=== PATIENT | female | born 1965 | race Caucasian/White ===

== ENCOUNTER 2018-08-19 18:06 | Emergency (ER) | payer MEDICAID ==
[~2018-08-19] VITALS: Ht 157.5 cm; Wt 62.6 kg
[2018-08-19 18:06] VITALS: BP_SYST 156
--- NOTE | 2018-08-19 18:10 | NUR ---
Patient triaged and placed in waiting room. VSS and patient appears in no acute distress at this time. Accompanied by SELF, awaiting available bed, and MD notified of need for MSE.
--- NOTE | 2018-08-19 18:21 | NUR ---
BROUGHT BACK TO BED #8 AND TRIAGED. REPORT GIVEN TO CARRIE
--- NOTE | 2018-08-19 18:30 | NUR ---
ER Dr. Monroy at bedside examining patient.
--- NOTE | 2018-08-19 18:50 | NUR ---
Patient presented to ER with vertigo, abdominal pain, nausea, and headache x1week. Patient AA&Ox4, lao speaking, afebrile, respirations equal bilat, pain 10/10, denies head trauma. Patient states vertigo, nausea, abdominal pain and headache started a week ago, today pain increased to 10/10 prompting ER visit today. Patient states she has diabetes, history of vertigo 8 months ago, and kidney stones.
[2018-08-19] MEDS ORDERED: NACL 0.9% 1,000 ML IV ONE (18:52)
[2018-08-19] MEDS ORDERED: METOCLOPRAMIDE HCL 10 MG/2 ML VIAL IVP ONE (19:00)
[2018-08-19] MEDS ORDERED: MECLIZINE HCL 25 MG TABLET (ANITVERT) PO ONE (19:00)
[2018-08-19 19:09] LABS: BASOPHILS % (AUTO) 0.5 % (0.0-2.0); EOSINOPHILS # (AUTO) 0.1 K/uL (0.0-0.4); EOSINOPHILS % (AUTO) 1.3 % (0.0-4.0); HEMOGLOBIN 14.4 g/dL (12.0-16.0); LYMPHOCYTES # (AUTO) 2.9 K/uL (1.0-5.5); LYMPHOCYTES % (AUTO) 33.9 % (20.5-51.5); MEAN CORPUSCULAR HEMOGLOBIN 31 pg (27-31); MEAN CORPUSCULAR HGB CONC 34 % (32-36); MEAN CORPUSCULAR VOLUME 91 fL (79.0-98.0); MONOCYTES # (AUTO) 0.6 K/uL (0.0-1.0); MONOCYTES % (AUTO) 6.6 % (1.7-9.3); NEUTROPHILS # (AUTO) 4.9 K/uL (1.8-7.7); NEUTROPHILS % (AUTO) 57.7 % (40.0-70.0); PLATELET COUNT (AUTO) 251 K/uL (130-430); RED BLOOD CELL COUNT(AUTO) 4.61 MIL/uL (4.2-6.2); RED CELL DISTRIBUTION WIDTH 13.4 % (9.0-15.0); WHITE BLOOD COUNT (AUTO) 8.5 K/uL (4.8-10.8)
[2018-08-19 19:19] LABS: CALCIUM 9.2 mg/dL (8.4-11.0); CREATININE 0.87 mg/dL (0.55-1.30); POTASSIUM 3.8 mmol/L (3.5-5.1)
--- NOTE | 2018-08-19 19:20 | NUR ---
Daniel bills in [facility] - 08/19/18 at 1920 by SDEDTD Report given to Juvencio REYES
--- NOTE | 2018-08-19 19:20 | NUR ---
Report given to Maura REYES
[2018-08-19 19:24] LABS: ALBUMIN 3.7 g/dL (3.4-4.8); TOTAL BILIRUBIN 0.5 mg/dL (0.0-1.0)
[2018-08-19] MEDS ORDERED: KETOROLAC TROMETHAMINE 30 MG VIAL IVP ONE (19:45)
--- NOTE | 2018-08-19 20:45 | NUR ---
Dr. Moon at bedside explaining results to pt
[2018-08-19] MEDS ORDERED: MORPHINE 4 MG/ML INJ. SYRINGE IM ONE (21:00)
[2018-08-19 21:25] VITALS: BP_SYST 156
--- NOTE | 2018-08-19 21:25 | NUR ---
Patient given written and verbal discharge instructions and verbalizes understanding. ER MD Dr. Gong discussed with patient the results and treatment provided. Patient in stable condition. ID arm band removed. Rx of Reglan and antivert given. Patient educated on pain management and to follow up with PMD. Pain Scale 0/10. Opportunity for questions provided and answered. Medication side effect fact sheet provided.
== END 2018-08-19 21:25 | disposition home or self-care (01) ==
LOC: SED 18:06
DX: R42 Dizziness and giddiness (principal); R11.2 Nausea with vomiting, unspecified; F41.9 Anxiety disorder, unspecified; E11.9 Type 2 diabetes mellitus without complications; R03.0 Elevated blood-pressure reading, without diagnosis of hypertension
CPT/HCPCS: 36415; 80053; 85025; 93005; 96361; 96372; 96374; 96375; 99284; J1885; J2270; J2765; J7030; J8597

== ENCOUNTER 2018-09-11 15:52 | Emergency (ER) | payer MEDICAID ==
[~2018-09-11] VITALS: Ht 157.5 cm; Wt 74.8 kg
[2018-09-11 15:56] VITALS: BP_SYST 154
[2018-09-11] MEDS ORDERED: METOCLOPRAMIDE HCL 10 MG/2 ML VIAL IVP ONE ×2 (16:15→17:00)
[2018-09-11] MEDS ORDERED: MECLIZINE HCL 25 MG TABLET (ANITVERT) PO ONE (16:15)
[2018-09-11] MEDS ORDERED: DIPHENHYDRAMINE INJ 50 MG/ML VIAL IVP ONE (17:00)
[2018-09-11 17:01] LABS: BASOPHILS % (AUTO) 0.5 % (0.0-2.0); EOSINOPHILS # (AUTO) 0.1 K/uL (0.0-0.4); EOSINOPHILS % (AUTO) 1.1 % (0.0-4.0); HEMATOCRIT 41.8 % (36-48); HEMOGLOBIN 14.6 g/dL (12.0-16.0); LYMPHOCYTES # (AUTO) 2.5 K/uL (1.0-5.5); LYMPHOCYTES % (AUTO) 31.9 % (20.5-51.5); MEAN CORPUSCULAR HEMOGLOBIN 31 pg (27-31); MEAN CORPUSCULAR HGB CONC 35 % (32-36); MEAN CORPUSCULAR VOLUME 89 fL (79.0-98.0); MONOCYTES # (AUTO) 0.5 K/uL (0.0-1.0); NEUTROPHILS # (AUTO) 4.8 K/uL (1.8-7.7); NEUTROPHILS % (AUTO) 60.5 % (40.0-70.0); PLATELET COUNT (AUTO) 241 K/uL (130-430); WHITE BLOOD COUNT (AUTO) 7.9 K/uL (4.8-10.8)
[2018-09-11 17:09] LABS: CALCIUM 9.4 mg/dL (8.4-11.0); CREATININE 0.84 mg/dL (0.55-1.30); POTASSIUM 3.9 mmol/L (3.5-5.1)
[2018-09-11 17:12] LABS: PROTHROMBIN TIME 9.9 SECS (9.5-12.5)
[2018-09-11 17:13] LABS: ALBUMIN 3.9 g/dL (3.4-4.8); TOTAL BILIRUBIN 0.6 mg/dL (0.0-1.0)
[2018-09-11] MEDS ORDERED: MORPHINE 4 MG/ML INJ. SYRINGE IVP ONE (17:45)
[2018-09-11 18:36] VITALS: BP_SYST 133
== END 2018-09-11 18:36 | disposition home or self-care (01) ==
LOC: SED 15:52
DX: R51 Headache (principal); R42 Dizziness and giddiness; F41.9 Anxiety disorder, unspecified; E11.9 Type 2 diabetes mellitus without complications
CPT/HCPCS: 36415; 70450; 71045; 80053; 81025; 84484; 85025; 85610; 85730; 93005; 96374; 96375; 99284; J1200; J2270; J2765; J8597

== ENCOUNTER 2018-10-12 17:49 | Emergency (ER) | payer MEDICAID ==
[~2018-10-12] VITALS: Ht 157.5 cm; Wt 76.2 kg
[2018-10-12 18:04] VITALS: BP_SYST 163
--- NOTE | 2018-10-12 18:06 | NUR ---
Patient to ER bed 02 to gown for evaluation. Side rails up.
--- NOTE | 2018-10-12 18:13 | NUR ---
PATIENT CAME IN COMPLAINING OF STABBING EPIGASTRIC PAIN 9/10 FOR 3 DAYS. PATIENT ALSO COMPLAINING OF ANXIETY FOR PAST 3 DAYS. PATIENT COMPLAINING OF NAUSEA BUT NO VOMITING. PATIENT STATES SHE TOOK IBUPROFEN BUT MADE WORST. PATIENT NOT COMPLAINING OF SOB. PATIENT ALERT AND ORIENTED X4.
--- NOTE | 2018-10-12 18:31 | NUR ---
ER at bedside examining patient.
[2018-10-12] MEDS ORDERED: NACL 0.9% 1,000 ML IV ONE (18:45)
[2018-10-12] MEDS ORDERED: MORPHINE 4 MG/ML INJ. SYRINGE IVP ONE (18:45)
--- NOTE | 2018-10-12 18:51 | NUR ---
ULTRA SOUND AT BEDSIDE.
[2018-10-12 18:56] LABS: BASOPHILS % (AUTO) 0.4 % (0.0-2.0); EOSINOPHILS # (AUTO) 0.1 K/uL (0.0-0.4); EOSINOPHILS % (AUTO) 1.2 % (0.0-4.0); HEMATOCRIT 39.6 % (36-48); HEMOGLOBIN 13.7 g/dL (12.0-16.0); LYMPHOCYTES # (AUTO) 3.1 K/uL (1.0-5.5); LYMPHOCYTES % (AUTO) 43.9 % (20.5-51.5); MEAN CORPUSCULAR HEMOGLOBIN 31 pg (27-31); MEAN CORPUSCULAR HGB CONC 35 % (32-36); MEAN CORPUSCULAR VOLUME 89 fL (79.0-98.0); MONOCYTES # (AUTO) 0.4 K/uL (0.0-1.0); MONOCYTES % (AUTO) 5.9 % (1.7-9.3); NEUTROPHILS # (AUTO) 3.4 K/uL (1.8-7.7); NEUTROPHILS % (AUTO) 48.6 % (40.0-70.0); PLATELET COUNT (AUTO) 231 K/uL (130-430); RED BLOOD CELL COUNT(AUTO) 4.47 MIL/uL (4.2-6.2); RED CELL DISTRIBUTION WIDTH 13.3 % (9.0-15.0)
[2018-10-12] MEDS ORDERED: ONDANSETRON HCL 4 MG/2 ML VIAL IVP ONE (19:00)
--- NOTE | 2018-10-12 19:07 | NUR ---
ENDORSED CARE TO AMY HICKEY.
[2018-10-12 19:16] LABS: CALCIUM 8.9 mg/dL (8.4-11.0); CREATININE 0.75 mg/dL (0.55-1.30); POTASSIUM 3.6 mmol/L (3.5-5.1)
[2018-10-12 19:17] LABS: BILIRUBIN,URINE NEGATIVE (NEGATIVE); BLOOD, URINE NEGATIVE (NEGATIVE); CLARITY/URINE CLEAR (CLEAR); COLOR,URINE YELLOW (YELLOW); GLUCOSE,URINE 3+ (NEGATIVE); KETONES,URINE NEGATIVE (NEGATIVE); LEUKOCYTE ESTERASE ,URINE NEGATIVE (NEGATIVE); NITRITE, URINE NEGATIVE (NEGATIVE); PH,URINE 6.5 (5.0-8.0); PROTEIN URINE NEGATIVE (NEGATIVE); UROBILINOGEN,URINE 0.2 (0.2-1.0)
[2018-10-12 19:20] LABS: ALBUMIN 3.3 g/dL (3.4-4.8); TOTAL BILIRUBIN 0.3 mg/dL (0.0-1.0)
[2018-10-12 19:42] LABS: BACTERIA,URINE FEW /HPF (None Seen); RBC,URINE NONE SEEN /HPF (0-3); WBC,URINE 0-3 /HPF (0-3)
[2018-10-12 19:43] LABS: MUCUS,URINE 1+ /LPF (None Seen)
[2018-10-12] MEDS ORDERED: ACETAMINOPHEN 500 MG TABLET PO ONE (20:30)
--- NOTE | 2018-10-12 20:36 | NUR ---
Pt C/O headache 11/03 after morphine administration. ER MD notified and orders recieved. Pt given 1000mg of Tylenol PO for discomfort
[2018-10-12 20:45] VITALS: BP_SYST 125
--- NOTE | 2018-10-12 20:45 | NUR ---
2044 - Patient given written and verbal discharge instructions and verbalizes understanding. ER MD discussed with patient the results and treatment provided. Patient in stable condition. ID arm band removed. IV catheter removed intact and dressing applied, no active bleeding. Rx of bentyl given. Patient educated on pain management and to follow up with PMD. Pain Scale 3. Opportunity for questions provided and answered. Medication side effect fact sheet provided.
== END 2018-10-12 20:45 | disposition home or self-care (01) ==
LOC: SED 17:49
DX: R10.13 Epigastric pain (principal); E11.65 Type 2 diabetes mellitus with hyperglycemia
CPT/HCPCS: 36415; 76700; 80053; 81000; 82962; 83690; 85025; 93005; 96361; 96374; 96375; 99284; J2270; J2405; J7030

== ENCOUNTER 2018-11-09 10:30 | Emergency (ER) | payer MEDICAID ==
[~2018-11-09] VITALS: Ht 157.5 cm; Wt 82.6 kg
[2018-11-09 10:44] VITALS: BP_SYST 137
--- NOTE | 2018-11-09 10:50 | NUR ---
Patient to ER bed 5 to gown for evaluation. Side rails up. Report given to Johnson REYES.
--- NOTE | 2018-11-09 11:02 | NUR ---
LESLEY Rosa at bedside examining patient.
--- NOTE | 2018-11-09 11:09 | NUR ---
Pt came into ED with left flank pain that she's had for two months. Patient states that the pain has gotten worse in the past 4 days. Patient states that her physician gave her naproxin, but she broke out in hives. Pt states she's taking ibuprofen for pain but it doesn't help the pain. Pt states her pain is 0/10. Pt states she has nausea, denies vomiting. Patient's last BM was yesterday morning and it was diarrhea. Pt denies SOB. Pt is A&Ox4. Will continue to monitor.
[2018-11-09 11:12] LABS: BILIRUBIN,URINE NEGATIVE (NEGATIVE); BLOOD, URINE 1+ (NEGATIVE); CLARITY/URINE CLEAR (CLEAR); COLOR,URINE YELLOW (YELLOW); GLUCOSE,URINE 2+ (NEGATIVE); KETONES,URINE NEGATIVE (NEGATIVE); LEUKOCYTE ESTERASE ,URINE NEGATIVE (NEGATIVE); NITRITE, URINE NEGATIVE (NEGATIVE); PROTEIN URINE NEGATIVE (NEGATIVE)
[2018-11-09] MEDS ORDERED: MORPHINE 4 MG/ML INJ. SYRINGE IVP ONE (11:15)
[2018-11-09] MEDS ORDERED: ONDANSETRON HCL 4 MG/2 ML VIAL IVP ONE (11:15)
[2018-11-09 11:26] LABS: BASOPHILS % (AUTO) 0.3 % (0.0-2.0); EOSINOPHILS # (AUTO) 0.1 K/uL (0.0-0.4); EOSINOPHILS % (AUTO) 1.7 % (0.0-4.0); HEMATOCRIT 40.1 % (36-48); HEMOGLOBIN 13.9 g/dL (12.0-16.0); LYMPHOCYTES # (AUTO) 1.6 K/uL (1.0-5.5); LYMPHOCYTES % (AUTO) 30.7 % (20.5-51.5); MEAN CORPUSCULAR HEMOGLOBIN 31 pg (27-31); MEAN CORPUSCULAR HGB CONC 35 % (32-36); MEAN CORPUSCULAR VOLUME 89 fL (79.0-98.0); MONOCYTES # (AUTO) 0.4 K/uL (0.0-1.0); MONOCYTES % (AUTO) 7.5 % (1.7-9.3); NEUTROPHILS # (AUTO) 3.2 K/uL (1.8-7.7); NEUTROPHILS % (AUTO) 59.8 % (40.0-70.0); PLATELET COUNT (AUTO) 226 K/uL (130-430); RED BLOOD CELL COUNT(AUTO) 4.48 MIL/uL (4.2-6.2); RED CELL DISTRIBUTION WIDTH 13.7 % (9.0-15.0); WHITE BLOOD COUNT (AUTO) 5.4 K/uL (4.8-10.8)
[2018-11-09 11:31] LABS: BACTERIA,URINE FEW /HPF (None Seen); RBC,URINE 0-3 /HPF (0-3)
[2018-11-09 11:32] LABS: MUCUS,URINE None Seen /LPF (None Seen)
[2018-11-09 11:41] LABS: CALCIUM 9.2 mg/dL (8.4-11.0); CREATININE 0.8 mg/dL (0.55-1.30); POTASSIUM 3.9 mmol/L (3.5-5.1)
[2018-11-09 11:45] LABS: ALBUMIN 3.6 g/dL (3.4-4.8); TOTAL BILIRUBIN 0.3 mg/dL (0.0-1.0)
[2018-11-09] MEDS ORDERED: SIMETHICONE 80 MG TAB.CHEW PO ONE (12:15)
[2018-11-09] MEDS ORDERED: CIPROFLOXACIN HCL 500 MG TABLET PO ONE (12:15)
[2018-11-09] MEDS ORDERED: metroNIDAZOLE 500 MG TABLET PO ONE (12:15)
--- NOTE | 2018-11-09 12:30 | NUR ---
Patient states that she is still in pain. MD notified; will carry out orders.
[2018-11-09] MEDS ORDERED: LACTULOSE 20 GM/30 ML UDC PO ONE (12:45)
[2018-11-09] MEDS ORDERED: KETOROLAC TROMETHAMINE 15 MG VIAL IVP ONE (12:45)
[2018-11-09 13:15] VITALS: BP_SYST 137
--- NOTE | 2018-11-09 13:15 | NUR ---
Patient given written and verbal discharge instructions and verbalizes understanding. ER MD discussed with patient the results and treatment provided. Patient in stable condition. ID arm band removed. IV catheter removed intact and dressing applied, no active bleeding. Rx of flagyl, simethicone, cipro given. Patient educated on pain management and to follow up with PMD. Pain Scale 1/10. Opportunity for questions provided and answered. Medication side effect fact sheet provided.
== END 2018-11-09 13:15 | disposition home or self-care (01) ==
LOC: SED 10:30
DX: K52.9 Noninfective gastroenteritis and colitis, unspecified (principal); K59.00 Constipation, unspecified; E11.9 Type 2 diabetes mellitus without complications; F41.9 Anxiety disorder, unspecified
CPT/HCPCS: 36415; 74176; 80053; 81000; 85025; 96374; 96375; 99284; J1885; J2270; J2405

== ENCOUNTER 2018-12-01 17:49 | Emergency (ER) | payer MEDICAID ==
[~2018-12-01] VITALS: Ht 157.5 cm; Wt 79.4 kg
[2018-12-01 17:49] VITALS: BP_SYST 145
[2018-12-01] MEDS ORDERED: METOCLOPRAMIDE HCL 10 MG/2 ML VIAL IVP ONE (18:45)
[2018-12-01] MEDS ORDERED: KETOROLAC TROMETHAMINE 30 MG VIAL IVP ONE (19:15)
[2018-12-01] MEDS ORDERED: MORPHINE 2 MG/ML INJ. SYRINGE IVP ONE (20:00)
[2018-12-01 20:07] VITALS: BP_SYST 134
== END 2018-12-01 20:07 | disposition home or self-care (01) ==
LOC: SED 17:49
DX: R51 Headache (principal); F41.9 Anxiety disorder, unspecified; E11.9 Type 2 diabetes mellitus without complications
CPT/HCPCS: 70450; 96374; 96375; 99284; J1885; J2270; J2765

== ENCOUNTER 2018-12-21 17:45 | Emergency (ER) | payer MEDICAID ==
[~2018-12-21] VITALS: Ht 157.5 cm; Wt 84.4 kg
[2018-12-21 17:52] VITALS: BP_SYST 123
--- NOTE | 2018-12-21 17:57 | NUR ---
Patient triaged and placed in waiting room. VSS and patient appears in no acute distress at this time. Accompanied by SELF, awaiting available bed, and MD notified of need for MSE.
--- NOTE | 2018-12-21 18:24 | NUR ---
Patient to ER bed 07 to gown for evaluation. Side rails up. Report RECEIVED FROM AMY HATFIELD
--- NOTE | 2018-12-21 18:38 | NUR ---
LESLEY Rosa examining patient.
[2018-12-21 18:44] LABS: BILIRUBIN,URINE NEGATIVE (NEGATIVE); BLOOD, URINE 2+ (NEGATIVE); CLARITY/URINE CLEAR (CLEAR); COLOR,URINE YELLOW (YELLOW); GLUCOSE,URINE NEGATIVE (NEGATIVE); KETONES,URINE NEGATIVE (NEGATIVE); LEUKOCYTE ESTERASE ,URINE TRACE (NEGATIVE); NITRITE, URINE NEGATIVE (NEGATIVE); PROTEIN URINE NEGATIVE (NEGATIVE)
[2018-12-21] MEDS ORDERED: DIPHENHYDRAMINE INJ 50 MG/ML VIAL IVP ONE (18:45)
[2018-12-21] MEDS ORDERED: NACL 0.9% 1,000 ML IV ONE (18:45)
[2018-12-21] MEDS ORDERED: MORPHINE 4 MG/ML INJ. SYRINGE IVP ONE (18:45)
[2018-12-21 18:57] LABS: BACTERIA,URINE RARE /HPF (None Seen)
[2018-12-21] MEDS ORDERED: KETOROLAC TROMETHAMINE 30 MG VIAL IVP ONE (19:00)
--- NOTE | 2018-12-21 19:15 | NUR ---
ER at bedside examining patient.
[2018-12-21 19:19] LABS: BASOPHILS % (AUTO) 0.5 % (0.0-2.0); EOSINOPHILS # (AUTO) 0.1 K/uL (0.0-0.4); HEMATOCRIT 41.1 % (36-48); LYMPHOCYTES # (AUTO) 2.4 K/uL (1.0-5.5); MEAN CORPUSCULAR HEMOGLOBIN 31 pg (27-31); MEAN CORPUSCULAR HGB CONC 34 % (32-36); MEAN CORPUSCULAR VOLUME 91 fL (79.0-98.0); MONOCYTES # (AUTO) 0.6 K/uL (0.0-1.0); MONOCYTES % (AUTO) 6.8 % (1.7-9.3); NEUTROPHILS % (AUTO) 65.7 % (40.0-70.0); PLATELET COUNT (AUTO) 218 K/uL (130-430); RED BLOOD CELL COUNT(AUTO) 4.55 MIL/uL (4.2-6.2); RED CELL DISTRIBUTION WIDTH 13.7 % (9.0-15.0); WHITE BLOOD COUNT (AUTO) 9.2 K/uL (4.8-10.8)
[2018-12-21 19:38] LABS: CALCIUM 9.2 mg/dL (8.4-11.0); CREATININE 0.87 mg/dL (0.55-1.30); POTASSIUM 3.7 mmol/L (3.5-5.1)
[2018-12-21 19:43] LABS: ALBUMIN 3.9 g/dL (3.4-4.8); TOTAL BILIRUBIN 0.5 mg/dL (0.0-1.0)
[2018-12-21] MEDS ORDERED: cefTRIAXone 1 GM IVPB PREMIX 50 ML IV ONE (19:45)
[2018-12-21] MEDS ORDERED: ACETAMINOPHEN 500 MG TABLET PO ONE (21:30)
--- NOTE | 2018-12-21 21:56 | NUR ---
Patient off unit to ultrasound for US of abdomen with Maggi Leather Patcher.
--- NOTE | 2018-12-21 22:05 | NUR ---
Returned from radiology, back to [facility].
[2018-12-21 22:53] VITALS: BP_SYST 123
--- NOTE | 2018-12-21 22:53 | NUR ---
Patient given written and verbal discharge instructions and verbalizes understanding. ER MD discussed with patient the results and treatment provided. Patient in stable condition. ID arm band removed. IV catheter removed intact and dressing applied, no active bleeding. Rx of pyridium, motrin, bentyl given. Patient educated on pain management and to follow up with PMD. Pain Scale 0/10. Opportunity for questions provided and answered. Medication side effect fact sheet provided.
== END 2018-12-21 22:53 | disposition home or self-care (01) ==
LOC: SED 17:45
DX: N20.0 Calculus of kidney (principal); R03.0 Elevated blood-pressure reading, without diagnosis of hypertension; N28.89 Other specified disorders of kidney and ureter; E11.9 Type 2 diabetes mellitus without complications; Z88.8 Allergy status to other drugs, medicaments and biological substances
CPT/HCPCS: 36415; 74176; 76700; 80053; 81000; 81025; 83690; 85025; 87040; 87086; 96365; 96375; 99284; J0696; J1200; J1885; J2270; J7030

== ENCOUNTER 2019-02-17 12:58 | Emergency (ER) | payer MEDICAID ==
[~2019-02-17] VITALS: Ht 157.5 cm; Wt 78.9 kg
[2019-02-17 13:00] VITALS: BP_SYST 143
--- NOTE | 2019-02-17 13:00 | NUR ---
BROUGHT BACK TO BED #6 AND TRIAGED. REPORT GIVEN TO GIDEON
[2019-02-17] MEDS ORDERED: KETOROLAC TROMETHAMINE 60 MG/2 ML VIAL IM ONE (13:15)
[2019-02-17] MEDS ORDERED: PROCHLORPERAZINE EDISYLATE 10 MG/2 ML VIAL IM ONE (13:15)
--- NOTE | 2019-02-17 13:22 | NUR ---
ER Dr. Eason at bedside examining patient.
--- NOTE | 2019-02-17 13:27 | NUR ---
Pt. arrived from home. Pt. laying in bed, c/o headache and photosensitivity for 3 days. No other complaint at the moment.
--- NOTE | 2019-02-17 13:36 | NUR ---
medicated the pt w/ Toradol 60mg and Compazine IM per MD order.
[2019-02-17] MEDS ORDERED: DIPHENHYDRAMINE INJ 50 MG/ML VIAL IM ONE (15:00)
[2019-02-17] MEDS ORDERED: fentaNYL CITRATE/PF 100 MCG/2 ML AMP IM ONE (15:00)
--- NOTE | 2019-02-17 15:35 | NUR ---
Medicated the pt w/ Benadryl and Fentanyl per MD order
--- NOTE | 2019-02-17 15:40 | NUR ---
Pt reports feeling better. Pt will be picked up by her son
[2019-02-17 15:52] VITALS: BP_SYST 135
--- NOTE | 2019-02-17 15:53 | NUR ---
DPatient given written and verbal discharge instructions and verbalizes understanding. ER MD discussed with patient the results and treatment provided. Patient in stable condition. ID arm band removed. Rx of NONE given. Patient educated on pain management and to follow up with PMD. Pain Scale 0/10. Opportunity for questions provided and answered. Medication side effect fact sheet provided.
== END 2019-02-17 15:53 | disposition home or self-care (01) ==
LOC: SED 12:58
DX: G43.909 Migraine, unspecified, not intractable, without status migrainosus (principal)
CPT/HCPCS: 96372; 99283; J0780; J1200; J1885; J3010

== ENCOUNTER 2019-06-08 17:58 | Emergency (ER) | payer MEDICAID ==
[~2019-06-08] VITALS: Ht 157.5 cm; Wt 73.9 kg
[2019-06-08 18:10] VITALS: BP_SYST 140
[2019-06-08] MEDS: DIPHENHYDRAMINE INJ 50 MG/ML VIAL IVP ONE ×2 (21:19→22:26)
[2019-06-08] MEDS: METOCLOPRAMIDE HCL 10 MG/2 ML VIAL IVP ONE ×2 (21:19→22:27)
[2019-06-08] MEDS: NACL 0.9% 1,000 ML IV ONE (21:20)
[2019-06-08] MEDS: fentaNYL CITRATE/PF 100 MCG/2 ML AMP IVP ONE (22:26)
[2019-06-08 22:49] VITALS: BP_SYST 138
== END 2019-06-08 22:49 | disposition home or self-care (01) ==
LOC: SED 17:58
DX: R51 Headache (principal); H57.11 Ocular pain, right eye; H92.01 Otalgia, right ear; F41.9 Anxiety disorder, unspecified; E11.9 Type 2 diabetes mellitus without complications; Z88.6 Allergy status to analgesic agent; Z87.442 Personal history of urinary calculi
CPT/HCPCS: 70450; 96374; 96375; 96376; 99284; J1200; J2765; J3010; J7030

== ENCOUNTER 2020-04-27 12:08 | Emergency (ER) | payer MEDICAID ==
[~2020-04-27] VITALS: Ht 152.4 cm; Wt 81.2 kg
[2020-04-27 12:21] VITALS: BP_SYST 195
[2020-04-27 13:26] VITALS: BP_SYST 195
== END 2020-04-27 13:27 | disposition home or self-care (01) ==
LOC: SED 12:08
DX: S16.1XXA Strain of muscle, fascia and tendon at neck level, initial encounter (principal); S29.012A Strain of muscle and tendon of back wall of thorax, initial encounter; R03.0 Elevated blood-pressure reading, without diagnosis of hypertension; E11.9 Type 2 diabetes mellitus without complications; F41.9 Anxiety disorder, unspecified; Z88.6 Allergy status to analgesic agent; W18.39XA Other fall on same level, initial encounter; Y93.89 Activity, other specified; Y92.091 Bathroom in other non-institutional residence as the place of occurrence of the external cause; Y99.8 Other external cause status
CPT/HCPCS: 99283

== ENCOUNTER 2022-02-27 10:20 | Emergency (ER) | payer MEDICAID ==
[~2022-02-27] VITALS: Ht 162.6 cm; Wt 87.1 kg
--- NOTE | 2022-02-27 10:20 | NUR ---
Patient to ER bed 08 to gown for evaluation. Side rails up. .
--- NOTE | 2022-02-27 10:22 | NUR ---
Pt brought by self, A&Ox4, pt presents to ER with R flank area to R abdominal area, no N/V noted, skin pink and warm, cap refill <3, VSS, will cont to monitor.
[2022-02-27 10:28] VITALS: BP_SYST 167
--- NOTE | 2022-02-27 10:30 | NUR ---
evaluating patient at bedside
[2022-02-27] MEDS ORDERED: KETOROLAC TROMETHAMINE 30 MG VIAL IM ONE (10:45)
--- NOTE | 2022-02-27 11:02 | NUR ---
Urine sent to the lab
[2022-02-27 11:03] LABS: BILIRUBIN,URINE NEGATIVE (NEGATIVE); CLARITY/URINE CLEAR (CLEAR); COLOR,URINE YELLOW (YELLOW); GLUCOSE,URINE 3+ (NEGATIVE); KETONES,URINE NEGATIVE (NEGATIVE); LEUKOCYTE ESTERASE ,URINE NEGATIVE (NEGATIVE); NITRITE, URINE NEGATIVE (NEGATIVE); PH,URINE 6.5 (5.0-8.0); PROTEIN URINE NEGATIVE (NEGATIVE); UROBILINOGEN,URINE 0.2 (0.2-1.0)
[2022-02-27 11:07] LABS: BLOOD, URINE TRACE (NEGATIVE)
--- NOTE | 2022-02-27 11:09 | NUR ---
Pt states she has allergies to toradol, per hold toradol at this time.
--- NOTE | 2022-02-27 11:11 | NUR ---
Report given to Brenna REYES
[2022-02-27 11:15] LABS: BASOPHILS % (AUTO) 0.4 % (0.0-2.0); EOSINOPHILS # (AUTO) 0.1 K/uL (0.0-0.4); EOSINOPHILS % (AUTO) 1.1 % (0.0-4.0); HEMATOCRIT 42.1 % (36-48); HEMOGLOBIN 14.8 g/dL (12.0-16.0); LYMPHOCYTES # (AUTO) 1.9 K/uL (1.0-5.5); LYMPHOCYTES % (AUTO) 26.5 % (20.5-51.5); MEAN CORPUSCULAR HEMOGLOBIN 32 pg (27-31); MEAN CORPUSCULAR HGB CONC 35 % (32-36); MEAN CORPUSCULAR VOLUME 91 fL (79.0-98.0); MONOCYTES # (AUTO) 0.4 K/uL (0.0-1.0); MONOCYTES % (AUTO) 5.9 % (1.7-9.3); NEUTROPHILS # (AUTO) 4.8 K/uL (1.8-7.7); NEUTROPHILS % (AUTO) 66.1 % (40.0-70.0); PLATELET COUNT (AUTO) 208 K/uL (130-430); RED BLOOD CELL COUNT(AUTO) 4.61 MIL/uL (4.2-6.2); RED CELL DISTRIBUTION WIDTH 13.1 % (9.0-15.0); WHITE BLOOD COUNT (AUTO) 7.3 K/uL (4.8-10.8)
[2022-02-27 11:19] LABS: BACTERIA,URINE None Seen /HPF (None Seen); MUCUS,URINE None Seen /LPF (None Seen); RBC,URINE 0-3 /HPF (0-3); WBC,URINE 0-3 /HPF (0-3)
[2022-02-27 11:20] LABS: ANION GAP 7 (5-15); CALCIUM 8.7 mg/dL (8.4-11.0); CHLORIDE 101 mmol/L (98-107); GLUCOSE 302 mg/dL (70-99); UREA NITROGEN, BLOOD 14 mg/dL (8-21)
[2022-02-27 11:24] LABS: ALANINE AMINOTRANSFERASE 21 U/L (12-78); ALBUMIN 3.8 g/dL (3.4-4.8); AMYLASE 14 U/L (0-100); ASPARTATE AMINOTRANSFERASE 15 U/L (10-37); LIPASE 97 U/L (73-393); TOTAL BILIRUBIN 0.4 mg/dL (0.0-1.0)
[2022-02-27 11:25] LABS: C-REACTIVE PROTEIN QUANT < 0.2 mg/dL (0-0.5); GFR AFRICAN AMERICAN 84 mL/min (>90)
--- NOTE | 2022-02-27 11:31 | NUR ---
Patient asleep on gurney in noacute distress and or discomfort.
[2022-02-27 11:34] LABS: INR 0.9 (0.8-1.2); PROTHROMBIN TIME 9.3 SECS (9.5-12.5)
--- NOTE | 2022-02-27 11:41 | NUR ---
Toradol not given r/t patient allergy
[2022-02-27] MEDS ORDERED: HYDR-3917 PO (11:45)
[2022-02-27] MEDS ORDERED: MORPHINE 4 MG INJ. 4 MG/ML VIAL IM ONE (12:00)
[2022-02-27 12:04] VITALS: BP_SYST 124
--- NOTE | 2022-02-27 12:06 | NUR ---
Patient given written and verbal discharge instructions and verbalizes understanding. ER MD discussed with patient the results and treatment provided. Patient in stable condition. ID arm band removed. IV catheter removed intact and dressing applied, no active bleeding. Patient educated on pain management and to follow up with PMD. Pain Scale 0/10 Opportunity for questions provided and answered. Medication side effect fact sheet provided.
== END 2022-02-27 12:06 | disposition home or self-care (01) ==
LOC: SED 10:20
DX: N20.0 Calculus of kidney (principal); R10.9 Unspecified abdominal pain; E10.9 Type 1 diabetes mellitus without complications; Z88.6 Allergy status to analgesic agent; Z79.899 Other long term (current) drug therapy
CPT/HCPCS: 99284; 74176; 80053; 81000; 82150; 83690; 85025; 85610; 86140; 36415; 76376; 96372; 83605; J2270

== ENCOUNTER 2022-05-14 10:53 | Emergency (ER) | payer MEDICAID ==
[~2022-05-14] VITALS: Ht 157.5 cm; Wt 79.4 kg
[~2022-05-14 10:53] MED LIST: HYDR-3917 PO
[2022-05-14 11:26] VITALS: BP_SYST 155
[2022-05-14 12:19] LABS: BILIRUBIN,URINE NEGATIVE (NEGATIVE); BLOOD, URINE 1+ (NEGATIVE); CLARITY/URINE CLEAR (CLEAR); COLOR,URINE YELLOW (YELLOW); GLUCOSE,URINE 3+ (NEGATIVE); KETONES,URINE NEGATIVE (NEGATIVE); LEUKOCYTE ESTERASE ,URINE NEGATIVE (NEGATIVE); NITRITE, URINE NEGATIVE (NEGATIVE); PROTEIN URINE NEGATIVE (NEGATIVE); UROBILINOGEN,URINE 0.2 (0.2-1.0)
[2022-05-14 12:34] LABS: BACTERIA,URINE FEW /HPF (None Seen); WBC,URINE 0-3 /HPF (0-3)
[2022-05-14 12:35] LABS: CALCIUM OXALATE CRYSTALS,UR 0-10 /HPF (None Seen)
[2022-05-14] MEDS ORDERED: ONDANSETRON 4 MG ODT TAB PO ONE (15:00)
[2022-05-14 15:54] LABS: BASOPHILS % (AUTO) 0.6 % (0.0-2.0); EOSINOPHILS # (AUTO) 0.1 K/uL (0.0-0.4); EOSINOPHILS % (AUTO) 1.2 % (0.0-4.0); HEMATOCRIT 41.5 % (36-48); HEMOGLOBIN 14.1 g/dL (12.0-16.0); LYMPHOCYTES # (AUTO) 2.7 K/uL (1.0-5.5); LYMPHOCYTES % (AUTO) 34.5 % (20.5-51.5); MEAN CORPUSCULAR HEMOGLOBIN 32 pg (27-31); MEAN CORPUSCULAR HGB CONC 34 % (32-36); MEAN CORPUSCULAR VOLUME 94 fL (79.0-98.0); MONOCYTES # (AUTO) 0.5 K/uL (0.0-1.0); MONOCYTES % (AUTO) 6.4 % (1.7-9.3); NEUTROPHILS # (AUTO) 4.6 K/uL (1.8-7.7); NEUTROPHILS % (AUTO) 57.3 % (40.0-70.0); PLATELET COUNT (AUTO) 226 K/uL (130-430); RED BLOOD CELL COUNT(AUTO) 4.42 MIL/uL (4.2-6.2); RED CELL DISTRIBUTION WIDTH 13.1 % (9.0-15.0)
[2022-05-14 16:09] LABS: ANION GAP 7 (5-15); CALCIUM 8.8 mg/dL (8.4-11.0); CHLORIDE 101 mmol/L (98-107); CREATININE 0.94 mg/dL (0.55-1.30); GLUCOSE 385 mg/dL (70-99); UREA NITROGEN, BLOOD 11 mg/dL (8-21)
[2022-05-14 16:14] LABS: GFR AFRICAN AMERICAN 80 mL/min (>90)
[2022-05-14 16:15] LABS: ACETONE, SERUM NEGATIVE (NEGATIVE); ALANINE AMINOTRANSFERASE 20 U/L (12-78); ALBUMIN 3.5 g/dL (3.4-4.8); AMYLASE 13 U/L (0-100); ASPARTATE AMINOTRANSFERASE 14 U/L (10-37); C-REACTIVE PROTEIN QUANT < 0.2 mg/dL (0-0.5); LACTATE DEHYDROGENASE 165 U/L (81-234); LIPASE 92 U/L (73-393); TOTAL BILIRUBIN 0.5 mg/dL (0.0-1.0)
[2022-05-14] MEDS ORDERED: HYDR-3917 PO (16:35)
[2022-05-14] MEDS ORDERED: MORPHINE 4 MG INJ. 4 MG/ML VIAL IVP ONE (16:45)
[2022-05-14] MEDS ORDERED: MORPHINE 4 MG INJ. 4 MG/ML VIAL IM ONE (17:00)
== END 2022-05-14 17:48 | disposition home or self-care (01) ==
LOC: SED 10:53
DX: N23 Unspecified renal colic (principal); R30.0 Dysuria; R11.0 Nausea; E10.9 Type 1 diabetes mellitus without complications; Z88.6 Allergy status to analgesic agent; Z79.899 Other long term (current) drug therapy
CPT/HCPCS: 99285; 74176; 80053; 81000; 82009; 82150; 84703; 83615; 83690; 85025; 86140; 36415; 76376; 81025; 96372; 83605; Q0162; J2270

== ENCOUNTER 2023-01-02 12:38 | Emergency (ER) | payer MEDICAID ==
[~2023-01-02] VITALS: Ht 157.5 cm; Wt 85.7 kg
[2023-01-02 13:07] VITALS: BP_SYST 110; PULSE 85; RESP 18; TEMP 97.5; O2SAT 97
[2023-01-02] MEDS ORDERED: INSU100V SUBCUT (13:07)
[2023-01-02 13:36] LABS: BILIRUBIN,URINE NEGATIVE (NEGATIVE); BLOOD, URINE NEGATIVE (NEGATIVE); CLARITY/URINE Clear (CLEAR); COLOR,URINE YELLOW (YELLOW); GLUCOSE,URINE 2+ (NEGATIVE); KETONES,URINE NEGATIVE (NEGATIVE); NITRITE, URINE NEGATIVE (NEGATIVE); PROTEIN URINE NEGATIVE (NEGATIVE)
[2023-01-02 14:06] LABS: LEUKOCYTE ESTERASE ,URINE NEGATIVE (NEGATIVE)
[2023-01-02] MEDS ORDERED: MORPHINE 2 MG/ML INJ. SYRINGE IVP ONE (14:15)
[2023-01-02 14:23] LABS: BACTERIA,URINE RARE /HPF (None Seen); RBC,URINE 0-3 /HPF (0-3); WBC,URINE 0-3 /HPF (0-3)
[2023-01-02 14:46] LABS: BASOPHILS % (AUTO) 0.6 % (0.0-2.0); EOSINOPHILS # (AUTO) 0.1 K/uL (0.0-0.4); EOSINOPHILS % (AUTO) 1.5 % (0.0-4.0); HEMATOCRIT 39.9 % (36-48); HEMOGLOBIN 13.7 g/dL (12.0-16.0); LYMPHOCYTES % (AUTO) 25.8 % (20.5-51.5); MEAN CORPUSCULAR HEMOGLOBIN 32 pg (27-31); MEAN CORPUSCULAR HGB CONC 34 % (32-36); MEAN CORPUSCULAR VOLUME 94 fL (79.0-98.0); MONOCYTES # (AUTO) 0.5 K/uL (0.0-1.0); MONOCYTES % (AUTO) 6.8 % (1.7-9.3); NEUTROPHILS # (AUTO) 5.1 K/uL (1.8-7.7); NEUTROPHILS % (AUTO) 65.3 % (40.0-70.0); PLATELET COUNT (AUTO) 233 K/uL (130-430); RED BLOOD CELL COUNT(AUTO) 4.26 MIL/uL (4.2-6.2); RED CELL DISTRIBUTION WIDTH 13.6 % (9.0-15.0); WHITE BLOOD COUNT (AUTO) 7.8 K/uL (4.8-10.8)
[2023-01-02 14:51] LABS: CALCIUM 8.7 mg/dL (8.4-11.0); CREATININE 0.88 mg/dL (0.55-1.30); POTASSIUM 4.3 mmol/L (3.5-5.1)
[2023-01-02 14:56] LABS: ALBUMIN 3.3 g/dL (3.4-4.8); TOTAL BILIRUBIN 0.4 mg/dL (0.0-1.0); TOTAL PROTEIN, SERUM 6.8 g/dL (6.4-8.3)
[2023-01-02] MEDS ORDERED: HYDROmorphone 1 MG/ML INJ. CARTRIDGE IVP ONE (15:00)
[2023-01-02] MEDS ORDERED: DICY10SO PO (17:21)
[2023-01-02 18:47] VITALS: BP_SYST 110; PULSE 85; RESP 18; TEMP 97.5; O2SAT 97
== END 2023-01-02 18:47 | disposition home or self-care (01) ==
LOC: SED 12:38
DX: R10.13 Epigastric pain (principal); R10.11 Right upper quadrant pain; M54.50 Low back pain, unspecified; E10.9 Type 1 diabetes mellitus without complications; Z88.6 Allergy status to analgesic agent; Z79.4 Long term (current) use of insulin; Z79.899 Other long term (current) drug therapy
CPT/HCPCS: 99285; 96374; 74160; 96375; 80053; 83690; 85025; 36415; 76376; 81003; 81000; J1170; J2270; Q9967

== ENCOUNTER 2023-01-26 08:40 | Emergency (ER) | payer MEDICAID ==
[~2023-01-26] VITALS: Ht 157.5 cm; Wt 87.1 kg
[~2023-01-26 08:40] MED LIST changes: +DICY10SO PO; +INSU100V SUBCUT
[2023-01-26 08:45] VITALS: BP_SYST 149; PULSE 85; RESP 18; TEMP 98.3; O2SAT 98
[2023-01-26] MEDS ORDERED: MORPHINE 4 MG INJ. 4 MG/ML VIAL IM ONE (09:00)
[2023-01-26 09:41] LABS: BASOPHILS # (AUTO) 0.1 K/uL (0.0-0.2); BASOPHILS % (AUTO) 0.8 % (0.0-2.0); EOSINOPHILS # (AUTO) 0.1 K/uL (0.0-0.4); EOSINOPHILS % (AUTO) 1.3 % (0.0-4.0); HEMATOCRIT 39.7 % (36-48); HEMOGLOBIN 13.5 g/dL (12.0-16.0); LYMPHOCYTES # (AUTO) 1.6 K/uL (1.0-5.5); LYMPHOCYTES % (AUTO) 25.2 % (20.5-51.5); MEAN CORPUSCULAR HEMOGLOBIN 32 pg (27-31); MEAN CORPUSCULAR HGB CONC 34 % (32-36); MEAN CORPUSCULAR VOLUME 93 fL (79.0-98.0); MONOCYTES # (AUTO) 0.4 K/uL (0.0-1.0); MONOCYTES % (AUTO) 7.1 % (1.7-9.3); NEUTROPHILS # (AUTO) 4.1 K/uL (1.8-7.7); NEUTROPHILS % (AUTO) 65.6 % (40.0-70.0); PLATELET COUNT (AUTO) 240 K/uL (130-430); RED BLOOD CELL COUNT(AUTO) 4.28 MIL/uL (4.2-6.2); RED CELL DISTRIBUTION WIDTH 12.8 % (9.0-15.0); WHITE BLOOD COUNT (AUTO) 6.3 K/uL (4.8-10.8)
[2023-01-26 09:49] LABS: BILIRUBIN,URINE NEGATIVE (NEGATIVE); BLOOD, URINE NEGATIVE (NEGATIVE); CLARITY/URINE Clear (CLEAR); COLOR,URINE YELLOW (YELLOW); GLUCOSE,URINE 2+ (NEGATIVE); KETONES,URINE NEGATIVE (NEGATIVE); LEUKOCYTE ESTERASE ,URINE NEGATIVE (NEGATIVE); NITRITE, URINE NEGATIVE (NEGATIVE); PH,URINE 6.5 (5.0-8.0); PROTEIN URINE NEGATIVE (NEGATIVE); UROBILINOGEN,URINE 0.2 (0.2-1.0)
[2023-01-26 09:57] LABS: ANION GAP 10 (5-15); CALCIUM 8.9 mg/dL (8.4-11.0); CARBON DIOXIDE 25 mmol/L (23-29); CHLORIDE 104 mmol/L (98-107); CREATININE 0.82 mg/dL (0.55-1.30); GFR AFRICAN AMERICAN 93 mL/min (>90); GLUCOSE 209 mg/dL (74-106); POTASSIUM 3.6 mmol/L (3.5-5.1); SODIUM SERUM 139 mmol/L (136-145); UREA NITROGEN, BLOOD 8 mg/dL (8-21)
[2023-01-26 09:58] LABS: GFR NON AFRICAN-AMERICAN 77 mL/min (>90)
[2023-01-26 10:00] LABS: ACETONE, SERUM NEGATIVE (NEGATIVE)
[2023-01-26 10:01] LABS: BACTERIA,URINE RARE /HPF (None Seen); RBC,URINE 0-3 /HPF (0-3); WBC,URINE 0-3 /HPF (0-3); YEAST,URINE Rare /HPF (None Seen)
[2023-01-26 10:12] LABS: ALANINE AMINOTRANSFERASE 19 U/L (12-78); ALBUMIN 3.3 g/dL (3.4-4.8); AMYLASE 13 U/L (0-100); ASPARTATE AMINOTRANSFERASE 10 U/L (10-37); LIPASE 71 U/L (73-393); TOTAL BILIRUBIN 0.5 mg/dL (0.0-1.0)
[2023-01-26] MEDS ORDERED: ONDANSETRON 4 MG ODT TAB PO ONE (10:15)
[2023-01-26 10:22] LABS: SERUM HCG (QUALITATIVE) NEGATIVE (NEGATIVE)
[2023-01-26] MEDS ORDERED: TRAM50TA2 PO (12:27)
[2023-01-26] MEDS ORDERED: HYDROcodone/ACETAMIN 10-325 MG TAB PO ONE (12:30)
[2023-01-26 13:28] VITALS: BP_SYST 124; PULSE 85; RESP 15; TEMP 98.5; O2SAT 98
== END 2023-01-26 13:28 | disposition home or self-care (01) ==
LOC: SED 08:40
DX: R10.9 Unspecified abdominal pain (principal); R11.0 Nausea; E10.9 Type 1 diabetes mellitus without complications; Z88.6 Allergy status to analgesic agent; Z79.4 Long term (current) use of insulin; Z79.899 Other long term (current) drug therapy
CPT/HCPCS: 99285; 74176; 80053; 81000; 82009; 82150; 84703; 83690; 85025; 84484; 36415; 76376; 96372; 83605; 82397; Q0162; J2270

== ENCOUNTER 2023-03-01 13:21 | Emergency (ER) | payer MEDICAID ==
[~2023-03-01] VITALS: Ht 160 cm; Wt 82.1 kg
[~2023-03-01 13:21] MED LIST changes: +TRAM50TA2 PO
[2023-03-01 13:25] VITALS: BP_SYST 149; PULSE 89; RESP 19; TEMP 96.7; O2SAT 98
[2023-03-01] MEDS ORDERED: NACL 0.9% 1,000 ML IV ONE (14:30)
[2023-03-01] MEDS ORDERED: MORPHINE 4 MG INJ. 4 MG/ML VIAL IVP ONE ×2 (14:30→16:15)
[2023-03-01] MEDS ORDERED: ONDANSETRON HCL 4 MG/2 ML VIAL IVP ONE (14:30)
[2023-03-01 14:42] LABS: BILIRUBIN,URINE NEGATIVE (NEGATIVE); BLOOD, URINE NEGATIVE (NEGATIVE); CLARITY/URINE CLEAR (CLEAR); COLOR,URINE YELLOW (YELLOW); GLUCOSE,URINE 3+ (NEGATIVE); KETONES,URINE TRACE (NEGATIVE); LEUKOCYTE ESTERASE ,URINE NEGATIVE (NEGATIVE); NITRITE, URINE NEGATIVE (NEGATIVE); PROTEIN URINE NEGATIVE (NEGATIVE)
[2023-03-01 14:50] LABS: BACTERIA,URINE FEW /HPF (None Seen); RBC,URINE 0-3 /HPF (0-3); WBC,URINE 0-3 /HPF (0-3)
[2023-03-01 14:54] LABS: MUCUS,URINE 1+ /LPF (None Seen)
[2023-03-01 15:03] LABS: BASOPHILS # (AUTO) 0.1 K/uL (0.0-0.2); BASOPHILS % (AUTO) 0.8 % (0.0-2.0); EOSINOPHILS # (AUTO) 0.1 K/uL (0.0-0.4); EOSINOPHILS % (AUTO) 1.8 % (0.0-4.0); HEMATOCRIT 42.5 % (36-48); HEMOGLOBIN 14.4 g/dL (12.0-16.0); LYMPHOCYTES # (AUTO) 2.2 K/uL (1.0-5.5); LYMPHOCYTES % (AUTO) 30.7 % (20.5-51.5); MEAN CORPUSCULAR HEMOGLOBIN 32 pg (27-31); MEAN CORPUSCULAR HGB CONC 34 % (32-36); MEAN CORPUSCULAR VOLUME 93 fL (79.0-98.0); MONOCYTES # (AUTO) 0.5 K/uL (0.0-1.0); MONOCYTES % (AUTO) 7.4 % (1.7-9.3); NEUTROPHILS # (AUTO) 4.3 K/uL (1.8-7.7); NEUTROPHILS % (AUTO) 59.3 % (40.0-70.0); PLATELET COUNT (AUTO) 242 K/uL (130-430); RED BLOOD CELL COUNT(AUTO) 4.56 MIL/uL (4.2-6.2); RED CELL DISTRIBUTION WIDTH 13.2 % (9.0-15.0); WHITE BLOOD COUNT (AUTO) 7.2 K/uL (4.8-10.8)
[2023-03-01 15:27] LABS: CALCIUM 9.8 mg/dL (8.4-11.0); CREATININE 0.9 mg/dL (0.55-1.30); POTASSIUM 3.9 mmol/L (3.5-5.1)
[2023-03-01 15:32] LABS: ALBUMIN 3.6 g/dL (3.4-4.8); TOTAL BILIRUBIN 0.4 mg/dL (0.0-1.0); TOTAL PROTEIN, SERUM 7.5 g/dL (6.4-8.3)
[2023-03-01] MEDS ORDERED: ONDA-8 TL (16:20)
[2023-03-01] MEDS ORDERED: TRAM50TA2 PO (16:20)
[2023-03-01 17:00] VITALS: BP_SYST 149; PULSE 72; RESP 19; TEMP 97.6; O2SAT 97
== END 2023-03-01 16:32 | disposition home or self-care (01) ==
LOC: SED 13:21
DX: D35.01 Benign neoplasm of right adrenal gland (principal); R10.11 Right upper quadrant pain; E10.9 Type 1 diabetes mellitus without complications; Z88.6 Allergy status to analgesic agent; Z79.4 Long term (current) use of insulin; Z79.899 Other long term (current) drug therapy
CPT/HCPCS: 99285; 74176; 96374; 96361; 96375; 80053; 81001; 83690; 85025; 36415; 76376; 81000; 81015; J2405; J2270; J7030

== ENCOUNTER 2023-03-07 12:38 | Emergency (ER) | payer MEDICAID ==
[~2023-03-07] VITALS: Ht 157.5 cm; Wt 82.1 kg
[~2023-03-07 12:38] MED LIST changes: +ONDA-8 TL
[2023-03-07] MEDS ORDERED: KETOROLAC TROMETHAMINE 60 MG/2 ML VIAL IM ONE ×2 (13:00→15:54)
[2023-03-07 13:24] LABS: BASOPHILS # (AUTO) 0.1 K/uL (0.0-0.2); BASOPHILS % (AUTO) 0.9 % (0.0-2.0); EOSINOPHILS # (AUTO) 0.1 K/uL (0.0-0.4); EOSINOPHILS % (AUTO) 0.7 % (0.0-4.0); HEMATOCRIT 41.7 % (36-48); HEMOGLOBIN 14.4 g/dL (12.0-16.0); LYMPHOCYTES # (AUTO) 2.1 K/uL (1.0-5.5); LYMPHOCYTES % (AUTO) 29.4 % (20.5-51.5); MEAN CORPUSCULAR HEMOGLOBIN 32 pg (27-31); MEAN CORPUSCULAR HGB CONC 35 % (32-36); MEAN CORPUSCULAR VOLUME 92 fL (79.0-98.0); MONOCYTES # (AUTO) 0.3 K/uL (0.0-1.0); MONOCYTES % (AUTO) 4.9 % (1.7-9.3); NEUTROPHILS # (AUTO) 4.6 K/uL (1.8-7.7); NEUTROPHILS % (AUTO) 64.1 % (40.0-70.0); PLATELET COUNT (AUTO) 256 K/uL (130-430); RED BLOOD CELL COUNT(AUTO) 4.55 MIL/uL (4.2-6.2); RED CELL DISTRIBUTION WIDTH 12.9 % (9.0-15.0); WHITE BLOOD COUNT (AUTO) 7.1 K/uL (4.8-10.8)
[2023-03-07 13:28] VITALS: BP_SYST 167; PULSE 56; RESP 20; TEMP 98; O2SAT 100
[2023-03-07 13:37] LABS: ACETONE, SERUM NEGATIVE (NEGATIVE)
[2023-03-07 13:41] LABS: ANION GAP 6 (5-15); CALCIUM 9.6 mg/dL (8.4-11.0); CARBON DIOXIDE 30 mmol/L (23-29); CHLORIDE 101 mmol/L (98-107); CREATININE 0.86 mg/dL (0.55-1.30); GFR AFRICAN AMERICAN 88 mL/min (>90); GFR NON AFRICAN-AMERICAN 73 mL/min (>90); GLUCOSE 223 mg/dL (74-106); POTASSIUM 3.7 mmol/L (3.5-5.1); SODIUM SERUM 137 mmol/L (136-145); UREA NITROGEN, BLOOD 10 mg/dL (8-21)
[2023-03-07 13:54] LABS: ALANINE AMINOTRANSFERASE 17 U/L (12-78); ALBUMIN 3.7 g/dL (3.4-4.8); AMYLASE 13 U/L (0-100); ASPARTATE AMINOTRANSFERASE 11 U/L (10-37); LIPASE 22 U/L (16-77); TOTAL BILIRUBIN 0.4 mg/dL (0.0-1.0); TOTAL PROTEIN, SERUM 7.3 g/dL (6.4-8.3)
[2023-03-07] MEDS ORDERED: HYDROcodone/ACETAMIN 7.5-325 MG TAB PO ONE (15:00)
[2023-03-07 15:02] LABS: BILIRUBIN,URINE NEGATIVE (NEGATIVE); BLOOD, URINE NEGATIVE (NEGATIVE); CLARITY/URINE CLEAR (CLEAR); COLOR,URINE YELLOW (YELLOW); GLUCOSE,URINE 2+ (NEGATIVE); KETONES,URINE NEGATIVE (NEGATIVE); LEUKOCYTE ESTERASE ,URINE NEGATIVE (NEGATIVE); NITRITE, URINE NEGATIVE (NEGATIVE); PROTEIN URINE NEGATIVE (NEGATIVE); UROBILINOGEN,URINE 0.2 (0.2-1.0)
[2023-03-07] MEDS ORDERED: TRAM50TA2 PO (15:50)
[2023-03-07] MEDS ORDERED: MORPHINE 2 MG/ML INJ. SYRINGE IM ONE (16:00)
[2023-03-07 16:17] VITALS: BP_SYST 167; PULSE 56; RESP 20; TEMP 98; O2SAT 100
== END 2023-03-07 16:16 | disposition home or self-care (01) ==
LOC: SED 12:38
DX: M54.6 Pain in thoracic spine (principal); E10.9 Type 1 diabetes mellitus without complications; Z88.6 Allergy status to analgesic agent; Z79.899 Other long term (current) drug therapy
CPT/HCPCS: 99283; 80053; 81001; 82009; 82150; 83690; 85025; 36415; 96372; 83605; 82397; 81003; J1885; J2270

== ENCOUNTER 2023-04-17 08:41 | Inpatient (IN) | payer MEDICAID ==
[~2023-04-17] VITALS: Ht 160 cm; Wt 83.9 kg
[2023-04-17 08:49] VITALS: BP_SYST 157; PULSE 98; RESP 18; TEMP 97.2; O2SAT 98
[2023-04-17] MEDS ORDERED: MORPHINE 4 MG INJ. 4 MG/ML VIAL IVP ONE ×2 (09:15→12:45)
[2023-04-17] MEDS ORDERED: ONDANSETRON HCL 4 MG/2 ML VIAL IVP ONE (09:15)
[2023-04-17] MEDS ORDERED: NACL 0.9% 1,000 ML IV ONE (09:15)
[2023-04-17 09:18] LABS: BILIRUBIN,URINE 1+ (NEGATIVE); CLARITY/URINE CLEAR (CLEAR); COLOR,URINE YELLOW (YELLOW); GLUCOSE,URINE 3+ (NEGATIVE); KETONES,URINE 1+ (NEGATIVE); LEUKOCYTE ESTERASE ,URINE NEGATIVE (NEGATIVE); NITRITE, URINE NEGATIVE (NEGATIVE); PROTEIN URINE NEGATIVE (NEGATIVE); UROBILINOGEN,URINE 0.2 (0.2-1.0)
[2023-04-17 09:21] LABS: BLOOD, URINE TRACE (NEGATIVE)
[2023-04-17 09:32] LABS: BASOPHILS % (AUTO) 0.5 % (0.0-2.0); EOSINOPHILS % (AUTO) 0.3 % (0.0-4.0); HEMATOCRIT 42.9 % (36-48); HEMOGLOBIN 14.9 g/dL (12.0-16.0); LYMPHOCYTES # (AUTO) 1.5 K/uL (1.0-5.5); LYMPHOCYTES % (AUTO) 17.1 % (20.5-51.5); MEAN CORPUSCULAR HEMOGLOBIN 32 pg (27-31); MEAN CORPUSCULAR HGB CONC 35 % (32-36); MEAN CORPUSCULAR VOLUME 92 fL (79.0-98.0); MONOCYTES # (AUTO) 0.5 K/uL (0.0-1.0); MONOCYTES % (AUTO) 5.6 % (1.7-9.3); NEUTROPHILS # (AUTO) 6.9 K/uL (1.8-7.7); NEUTROPHILS % (AUTO) 76.5 % (40.0-70.0); PLATELET COUNT (AUTO) 256 K/uL (130-430); RED BLOOD CELL COUNT(AUTO) 4.68 MIL/uL (4.2-6.2)
[2023-04-17 09:38] LABS: BACTERIA,URINE None Seen /HPF (None Seen); RBC,URINE 0-3 /HPF (0-3); WBC,URINE 0-3 /HPF (0-3)
[2023-04-17 09:39] LABS: ANION GAP 12 (5-15); CALCIUM 9.3 mg/dL (8.4-11.0); CARBON DIOXIDE 22 mmol/L (23-29); CHLORIDE 101 mmol/L (98-107); CREATININE 1.13 mg/dL (0.55-1.30); GFR AFRICAN AMERICAN 64 mL/min (>90); GLUCOSE 305 mg/dL (74-106); POTASSIUM 3.4 mmol/L (3.5-5.1); SODIUM SERUM 135 mmol/L (136-145); UREA NITROGEN, BLOOD 11 mg/dL (8-21)
[2023-04-17 09:40] LABS: GFR NON AFRICAN-AMERICAN 53 mL/min (>90)
[2023-04-17 09:45] LABS: ALANINE AMINOTRANSFERASE 19 U/L (12-78); ALBUMIN 3.6 g/dL (3.4-4.8); ASPARTATE AMINOTRANSFERASE 11 U/L (10-37); BILIRUBIN,DIRECT 0.1 mg/dL (0.0-0.3); LIPASE 28 U/L (16-77); TOTAL BILIRUBIN 0.5 mg/dL (0.0-1.0); TOTAL PROTEIN, SERUM 7.6 g/dL (6.4-8.3)
[2023-04-17] MEDS: D5NS 1,000 ML IV SCH (13:19)
[2023-04-17] MEDS ORDERED: ACETAMINOPHEN 325 MG TABLET PO PRN (15:15)
[2023-04-17 18:52] VITALS: O2SAT 96
[2023-04-17 19:00] VITALS: BP_SYST 136; PULSE 65; RESP 16; TEMP 98.4; O2SAT 98
[2023-04-17 19:12] VITALS: BP_SYST 125; PULSE 80; RESP 17; TEMP 98
[2023-04-17 20:00] VITALS: BP_SYST 136; PULSE 68; RESP 16; TEMP 98.4; O2SAT 98
[2023-04-17] MEDS ORDERED: NALOXONE HCL 0.4 MG/ML AMP (NARCAN) IVP PRN (20:30)
[2023-04-17] MEDS: ONDANSETRON HCL 4 MG/2 ML VIAL IVP PRN (21:09)
[2023-04-17] MEDS: MORPHINE 4 MG INJ. 4 MG/ML VIAL IVP PRN (21:09)
[2023-04-18] VITALS (7 sets, daily range): BP systolic 120–149; PULSE 66–75; RESP 16–18; TEMP 97.9–98.8; O2SAT 94–98
[2023-04-18] MEDS: MORPHINE 4 MG INJ. 4 MG/ML VIAL IVP PRN ×2 (00:59→06:17)
[2023-04-18] MEDS: D5NS 1,000 ML IV SCH ×3 (06:15→17:14)
[2023-04-18] MEDS ORDERED: NALOXONE HCL 0.4 MG/ML AMP (NARCAN) IVP PRN (09:30)
[2023-04-18] MEDS ORDERED: DICYCLOMINE HCL 10 MG/5 ML SOLUTION PO PRN (09:30)
[2023-04-18] MEDS ORDERED: traMADol HCL HCL 50 MG TABLET (ULTRAM) PO PRN (09:30)
[2023-04-18] MEDS ORDERED: LORazepam 2 MG/ML VIAL IVP PRN (09:30)
[2023-04-18] MEDS ORDERED: TAMSULOSIN HCL 0.4 MG CAP PO ONE (09:45)
[2023-04-18 10:13] LABS: EOSINOPHILS # (AUTO) 0.1 K/uL (0.0-0.4); LYMPHOCYTES # (AUTO) 2.2 K/uL (1.0-5.5); MEAN CORPUSCULAR HGB CONC 34 % (32-36); MONOCYTES # (AUTO) 0.4 K/uL (0.0-1.0); NEUTROPHILS # (AUTO) 3.2 K/uL (1.8-7.7); WHITE BLOOD COUNT (AUTO) 5.9 K/uL (4.8-10.8)
[2023-04-18 10:15] LABS: CREATININE 0.86 mg/dL (0.55-1.30); POTASSIUM 3.8 mmol/L (3.5-5.1)
[2023-04-18] MEDS: ONDANSETRON HCL 4 MG/2 ML VIAL IVP PRN ×2 (10:16→21:02)
[2023-04-18] MEDS: HYDROcodone/ACETAMIN 5-325 MG TAB (NORCO/ VICODIN) PO PRN ×2 (10:21→21:13)
[2023-04-18 10:22] LABS: BASOPHILS % (AUTO) 0.6 % (0.0-2.0); EOSINOPHILS % (AUTO) 2.1 % (0.0-4.0); HEMATOCRIT 37.4 % (36-48); HEMOGLOBIN 12.9 g/dL (12.0-16.0); LYMPHOCYTES % (AUTO) 37.3 % (20.5-51.5); MEAN CORPUSCULAR HEMOGLOBIN 32 pg (27-31); MEAN CORPUSCULAR VOLUME 93 fL (79.0-98.0); MONOCYTES % (AUTO) 6.5 % (1.7-9.3); NEUTROPHILS % (AUTO) 53.5 % (40.0-70.0); PLATELET COUNT (AUTO) 204 K/uL (130-430); RED BLOOD CELL COUNT(AUTO) 4.05 MIL/uL (4.2-6.2); RED CELL DISTRIBUTION WIDTH 12.7 % (9.0-15.0)
[2023-04-18] MEDS: INSULIN REGULAR, HUMAN 100 UNITS/ML, 3 ML VIAL (humuLIN R) SUBCUT PRN ×3 (11:16→21:22)
[2023-04-18] MEDS: MORPHINE 2 MG/ML INJ. SYRINGE IVP PRN (16:12)
[2023-04-18] MEDS: INSULIN Lispro 100 UNITS/ML, 3 ML VIAL (humaLOG) SUBCUT SCH (21:21)
[2023-04-19] VITALS (7 sets, daily range): BP systolic 120–142; PULSE 68–74; RESP 17–18; TEMP 97.7–97.8; O2SAT 96–98
[2023-04-19] MEDS: D5NS 1,000 ML IV SCH ×2 (04:45→14:45)
[2023-04-19] MEDS: INSULIN REGULAR, HUMAN 100 UNITS/ML, 3 ML VIAL (humuLIN R) SUBCUT PRN ×4 (06:19→20:57)
[2023-04-19] MEDS: HYDROcodone/ACETAMIN 5-325 MG TAB (NORCO/ VICODIN) PO PRN (06:20)
[2023-04-19 06:42] LABS: CALCIUM 8.5 mg/dL (8.4-11.0); CREATININE 0.72 mg/dL (0.55-1.30); POTASSIUM 3.6 mmol/L (3.5-5.1)
[2023-04-19 07:12] LABS: BASOPHILS % (AUTO) 0.5 % (0.0-2.0); EOSINOPHILS # (AUTO) 0.1 K/uL (0.0-0.4); EOSINOPHILS % (AUTO) 2.2 % (0.0-4.0); HEMATOCRIT 38.2 % (36-48); HEMOGLOBIN 13.4 g/dL (12.0-16.0); LYMPHOCYTES % (AUTO) 29.8 % (20.5-51.5); MEAN CORPUSCULAR HEMOGLOBIN 32 pg (27-31); MEAN CORPUSCULAR HGB CONC 35 % (32-36); MEAN CORPUSCULAR VOLUME 91 fL (79.0-98.0); MONOCYTES # (AUTO) 0.4 K/uL (0.0-1.0); MONOCYTES % (AUTO) 6.9 % (1.7-9.3); NEUTROPHILS % (AUTO) 60.6 % (40.0-70.0); PLATELET COUNT (AUTO) 212 K/uL (130-430); RED BLOOD CELL COUNT(AUTO) 4.22 MIL/uL (4.2-6.2); WHITE BLOOD COUNT (AUTO) 6.5 K/uL (4.8-10.8)
[2023-04-19] MEDS: INSULIN Lispro 100 UNITS/ML, 3 ML VIAL (humaLOG) SUBCUT SCH ×2 (08:56→20:56)
[2023-04-19] MEDS: TAMSULOSIN HCL 0.4 MG CAP PO SCH (09:00)
[2023-04-19] MEDS: MORPHINE 2 MG/ML INJ. SYRINGE IVP PRN ×3 (09:06→20:30)
[2023-04-19] MEDS: ONDANSETRON HCL 4 MG/2 ML VIAL IVP PRN ×2 (15:35→20:29)
[2023-04-20] VITALS (8 sets, daily range): BP systolic 122–140; PULSE 74–77; RESP 16–18; TEMP 97.5–98.9; O2SAT 96–98
[2023-04-20] MEDS: D5NS 1,000 ML IV SCH (00:45)
[2023-04-20] MEDS: MORPHINE 2 MG/ML INJ. SYRINGE IVP PRN ×3 (01:01→15:41)
[2023-04-20] MEDS: ONDANSETRON HCL 4 MG/2 ML VIAL IVP PRN (01:02)
[2023-04-20] MEDS: INSULIN REGULAR, HUMAN 100 UNITS/ML, 3 ML VIAL (humuLIN R) SUBCUT PRN ×4 (06:07→20:38)
[2023-04-20] MEDS: HYDROcodone/ACETAMIN 5-325 MG TAB (NORCO/ VICODIN) PO PRN ×3 (06:10→20:40)
[2023-04-20 06:33] LABS: CALCIUM 8.7 mg/dL (8.4-11.0); CREATININE 0.82 mg/dL (0.55-1.30); POTASSIUM 4.3 mmol/L (3.5-5.1); TOTAL BILIRUBIN 0.5 mg/dL (0.0-1.0); TOTAL PROTEIN, SERUM 6.5 g/dL (6.4-8.3)
[2023-04-20 06:42] LABS: BASOPHILS % (AUTO) 0.5 % (0.0-2.0); EOSINOPHILS # (AUTO) 0.2 K/uL (0.0-0.4); EOSINOPHILS % (AUTO) 2.3 % (0.0-4.0); HEMATOCRIT 39.2 % (36-48); HEMOGLOBIN 13.5 g/dL (12.0-16.0); LYMPHOCYTES # (AUTO) 2.8 K/uL (1.0-5.5); LYMPHOCYTES % (AUTO) 39.3 % (20.5-51.5); MEAN CORPUSCULAR HEMOGLOBIN 31 pg (27-31); MEAN CORPUSCULAR HGB CONC 35 % (32-36); MEAN CORPUSCULAR VOLUME 90 fL (79.0-98.0); MONOCYTES # (AUTO) 0.6 K/uL (0.0-1.0); MONOCYTES % (AUTO) 8.3 % (1.7-9.3); NEUTROPHILS # (AUTO) 3.5 K/uL (1.8-7.7); NEUTROPHILS % (AUTO) 49.6 % (40.0-70.0); PLATELET COUNT (AUTO) 219 K/uL (130-430); RED BLOOD CELL COUNT(AUTO) 4.34 MIL/uL (4.2-6.2); RED CELL DISTRIBUTION WIDTH 12.9 % (9.0-15.0); WHITE BLOOD COUNT (AUTO) 7.1 K/uL (4.8-10.8)
[2023-04-20] MEDS: INSULIN Lispro 100 UNITS/ML, 3 ML VIAL (humaLOG) SUBCUT SCH ×2 (09:50→20:37)
[2023-04-20] MEDS: TAMSULOSIN HCL 0.4 MG CAP PO SCH (09:51)
[2023-04-21] VITALS (8 sets, daily range): BP systolic 122–148; PULSE 66–76; RESP 16–18; TEMP 97.7–98; O2SAT 95–99
[2023-04-21] MEDS: HYDROcodone/ACETAMIN 5-325 MG TAB (NORCO/ VICODIN) PO PRN ×3 (06:19→15:53)
[2023-04-21] MEDS: INSULIN REGULAR, HUMAN 100 UNITS/ML, 3 ML VIAL (humuLIN R) SUBCUT PRN ×2 (06:19→16:17)
[2023-04-21] MEDS: TAMSULOSIN HCL 0.4 MG CAP PO SCH (09:59)
[2023-04-21] MEDS: INSULIN Lispro 100 UNITS/ML, 3 ML VIAL (humaLOG) SUBCUT SCH (10:03)
[2023-04-21] MEDS ORDERED: INSU100V SUBCUT (15:52)
[2023-04-21] MEDS ORDERED: HYDR-3917 PO (16:35)
[2023-04-21] MEDS ORDERED: HYDR-3919 PO (16:35)
== END 2023-04-21 18:50 | disposition home or self-care (01) | DRG 465 ==
LOC: SED 08:41 → SMU 12:45
PROVIDERS: ADMIT Preventive Medicine Preventive Medicine/Occupational Environmental Medicine; ATTEND Preventive Medicine Preventive Medicine/Occupational Environmental Medicine
DX: N20.0 Calculus of kidney (principal); E87.1 Hypo-osmolality and hyponatremia; D35.01 Benign neoplasm of right adrenal gland; E87.6 Hypokalemia; K52.9 Noninfective gastroenteritis and colitis, unspecified; E11.65 Type 2 diabetes mellitus with hyperglycemia; I10 Essential (primary) hypertension; R10.9 Unspecified abdominal pain; R31.9 Hematuria, unspecified; Z88.6 Allergy status to analgesic agent; Z88.8 Allergy status to other drugs, medicaments and biological substances; K63.89 Other specified diseases of intestine
CPT/HCPCS: 36415; 71045; 76376; 80048; 80053; 80076; 81000; 81001; 81015; 82962; 83690; 83880; 84484; 85025; 93005; 96361; 96374; 96375; 99285; J1815; J2270; J2405